=== PATIENT | female | born 1985 | race African-American/Black ===

== ENCOUNTER 2017-10-31 14:06 | Emergency (ER) | payer OTHER ==
[~2017-10-31] VITALS: Ht 165.1 cm; Wt 87.1 kg
[2017-10-31] MEDS ORDERED: UNOBMED (14:13)
[2017-10-31 14:15] VITALS: BP 166/86
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
[2017-10-31] MEDS ORDERED: Methocarbamol 500mg tab ORAL ONE (14:30)
[2017-10-31] MEDS ORDERED: Acetaminophen 500mg (ES) tab ORAL ONE (14:30)
[2017-10-31 15:29] LABS: APPEARANCE,URINE CLEAR; BILIRUBIN, URINE NEGATIVE (NEGATIVE); COLOR,URINE PALE YELLOW; GLUCOSE, URINE (UA) NEGATIVE (NEGATIVE); KETONES,URINE NEGATIVE (NEGATIVE); LEUKOCYTE ESTERASE ,URINE 2+ (NEGATIVE); NITRITE,URINE NEGATIVE (NEGATIVE); PH,URINE 9 (4.5-8.0); PROTEIN,URINE 2+ (NEGATIVE); UROBILINOGEN,URINE 1 MG/DL (0.0-1.0)
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
[2017-10-31] MEDS ORDERED: ROBAXIN500 MG PO (16:41)
[2017-10-31] MEDS ORDERED: LIDOCAINE700 M1 TP (16:41)
[2017-10-31] MEDS ORDERED: TYLENOL EXTRA500 MG ORAL (16:41)
[2017-10-31] MEDS ORDERED: Bacitracin Oint UD TOPIC ONE ×2 (16:56→17:00)
[2017-10-31 17:02] VITALS: BP 149/99
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
--- NOTE | 2017-10-31 17:06 | Diagnostic Imaging Report ---
Indication: Chest pain Technique: One view of the chest Comparison: none Findings: There is thoracic scoliotic deformity. Lungs and pleural spaces are clear. The heart size is normal. Bones are grossly intact. Impression: No acute process
== END 2017-10-31 17:02 | disposition home or self-care (01) ==
LOC: EMR 14:42
DX: S20.219A Contusion of unspecified front wall of thorax, initial encounter (principal); V43.52XA Car driver injured in collision with other type car in traffic accident, initial encounter; Y92.410 Unspecified street and highway as the place of occurrence of the external cause; J45.909 Unspecified asthma, uncomplicated
CPT/HCPCS: 70450; 71045; 72020; 81003; 81025; 87086; 99284